=== PATIENT | female | born 1965 | race African-American/Black ===

== ENCOUNTER 2019-06-06 12:25 | Day surgery (SDC) | payer OTHER ==
[~2019-06-06] VITALS: Ht 170.2 cm; Wt 107.3 kg
[~2019-06-06 12:25] MED LIST: ACET-187 PO
[2019-06-06] MEDS ORDERED: LACTATED RINGERS 1,000 ML IV SCH ×2 (12:51→18:29)
[2019-06-06] MEDS ORDERED: GABAPENTIN 300 MG CAPSULE PO ONE (13:00)
[2019-06-06] MEDS ORDERED: ACETAMINOPHEN 500 MG TABLET PO ONE (13:00)
[2019-06-06] MEDS ORDERED: SCOPOLAMINE PATCH, 1.5MG PATCH.TD72 TD ONE (13:00)
[2019-06-06] MEDS ORDERED: THROMBIN 5,000 UNIT VIAL TP ONE (13:03)
[2019-06-06] MEDS ORDERED: BUPIVACAINE/PF 0.25% ONE (13:03)
[2019-06-06] MEDS ORDERED: INDIGO CARMINE 0.8%, 5ML ONE (13:03)
[2019-06-06] MEDS ORDERED: MIDAZOLAM 1 MG/ML, 2ML ONE (13:12)
[2019-06-06] MEDS ORDERED: DEXAMETHASONE 4 MG/ML, 1ML ONE ×2 (13:14→13:16)
[2019-06-06] MEDS ORDERED: ROCURONIUM 10MG/ML,5ML ONE ×2 (13:14→15:25)
[2019-06-06] MEDS ORDERED: FENTANYL PF 250 MCG/5ML ONE (13:14)
[2019-06-06] MEDS ORDERED: PROPOFOL 10 MG/ML, 20ML ONE (13:14)
[2019-06-06] MEDS ORDERED: SUCCINYLCHOLINE 20 MG/ML, 10ML ONE (13:14)
[2019-06-06] MEDS ORDERED: CEFAZOLIN 1,000 MG ONE ×2 (13:16)
[2019-06-06] MEDS ORDERED: FENTANYL PF 100 MCG/2ML ONE ×3 (14:22→19:04)
[2019-06-06] MEDS ORDERED: HYDROmorphone 2 MG/ML, 1ML IVPush PRN (14:30)
[2019-06-06] MEDS ORDERED: PROMETHAZINE 25 MG/ML, 1ML IV PRN (14:30)
[2019-06-06] MEDS ORDERED: OXYcodone 5 MG/5 ML ORAL.SOL UDC PO PRN (14:30)
[2019-06-06] MEDS ORDERED: ONDANSETRON 2MG/ML, 2ML IV PRN (14:30)
[2019-06-06] MEDS ORDERED: hydrALAzine 20 MG/ML, 1ML IV PRN (14:30)
[2019-06-06] MEDS ORDERED: ONDANSETRON ODT 8 MG PO PRN (14:30)
[2019-06-06] MEDS ORDERED: ALBUTEROL SULFATE 2.5 MG/3 ML NPPB PRN (14:30)
[2019-06-06] MEDS ORDERED: MIDAZOLAM 1 MG/ML, 2ML IV PRN (14:30)
[2019-06-06] MEDS ORDERED: LABETALOL 5MG/ML, 20ML IV PRN (14:30)
[2019-06-06] MEDS ORDERED: PROMETHAZINE 12.5 MG SUPP PR PRN (14:30)
[2019-06-06] MEDS ORDERED: HALOPERIDOL 5 MG/ML IV PRN (14:30)
[2019-06-06] MEDS ORDERED: MEPERIDINE/PF 25MG/ML,1ML IVPush PRN (14:30)
[2019-06-06] MEDS ORDERED: DIAZEPAM 5 MG/ML, 2ML IVPush PRN (14:30)
[2019-06-06] MEDS ORDERED: EPHEDRINE 50 MG/ML, 1ML IVPush PRN (14:30)
[2019-06-06] MEDS ORDERED: FENTANYL PF 100 MCG/2ML IV PRN (14:30)
[2019-06-06] MEDS ORDERED: SUGAMMADEX 200 MG/2 ML IVPush ONE (17:56)
[2019-06-06] MEDS ORDERED: ONDANSETRON 2MG/ML, 2ML ONE ×2 (17:57)
[2019-06-06] MEDS ORDERED: ESTROGENS CONJUGATED VAG CRM 0.625MG/1G, 30GM ONE (18:00)
[2019-06-06] MEDS ORDERED: IBUPROFEN 600 MG TABLET PO PRN (18:30)
[2019-06-06] MEDS ORDERED: HYDROcodone/APAP 5/325 TABLET PO PRN (18:30)
[2019-06-06] MEDS ORDERED: ONDANSETRON 2MG/ML, 2ML IVPush PRN (18:30)
[2019-06-06] MEDS ORDERED: PROMETHAZINE 25 MG SUPP PR ONE (18:30)
[2019-06-06] MEDS ORDERED: OXYcodone 5 MG/5 ML ORAL.SOL UDC ONE (18:59)
== END 2019-06-06 21:50 | disposition home or self-care (01) ==
LOC: OUT 12:25 → 4NE 19:55 → OUT 21:50
PROVIDERS: ATTEND Obstetrics & Gynecology Female Pelvic Medicine and Reconstructive Surgery
DX: D25.1 Intramural leiomyoma of uterus (principal); N87.9 Dysplasia of cervix uteri, unspecified; N88.8 Other specified noninflammatory disorders of cervix uteri; Z72.89 Other problems related to lifestyle; Z79.899 Other long term (current) drug therapy; Z98.890 Other specified postprocedural states; Z80.3 Family history of malignant neoplasm of breast; Z80.0 Family history of malignant neoplasm of digestive organs; Z82.3 Family history of stroke
CPT/HCPCS: 58554; 74018; 88307; J0330; J0690; J1100; J2250; J2405; J2704; J3010; J3490; J7120; S2900; G0378